=== PATIENT | female | born 1970 | race African-American/Black ===

== ENCOUNTER 2016-11-02 12:33 | Emergency (ER) | payer SELFPAY ==
[~2016-11-02] VITALS: Ht 165.1 cm; Wt 76.4 kg
[~2016-11-02 12:33] MED LIST: DEPOP150I IM; DILT120C3 PO
[2016-11-02 13:53] LABS: BASOPHILS # (AUTO) 0.05 K/uL (0.00-0.20); BASOPHILS % (AUTO) 0.6 % (0.0-2.0); EOSINOPHILS # (AUTO) 0.18 K/uL (0.00-0.70); EOSINOPHILS % (AUTO) 2.16 % (1.0-6.0); HEMOGLOBIN 12.6 g/dL (12.0-16.0); LYMPHOCYTES # (AUTO) 3.1 K/uL (1.0-4.8); LYMPHOCYTES % (AUTO) 37.9 % (22.0-44.0); MEAN CORPUSCULAR VOLUME 91 fL (80-100); MONOCYTES # (AUTO) 0.6 K/uL (0.1-1.0); MONOCYTES % (AUTO) 6.9 % (2.0-9.0); NEUTROPHILS # (AUTO) 4.3 K/uL (1.8-7.7); NEUTROPHILS % (AUTO) 52.4 % (40.0-70.0); PLATELET COUNT (AUTO) 269 K/uL (150-450); RED BLOOD CELL COUNT(AUTO) 4.19 MIL/uL (4.00-5.20); RED CELL DISTRIBUTION WIDTH 14.1 % (11.5-14.5); WHITE BLOOD COUNT (AUTO) 8.1 K/uL (4.5-11.0)
[2016-11-02 13:56] LABS: ANION GAP 6 mmol/L (8-16); CALCIUM, TOTAL 8.7 mg/dL (8.8-10.5); CARBON DIOXIDE 29 mmol/L (22-29); CHLORIDE 105 mmol/L (98-107); CREATININE 0.86 mg/dL (0.60-1.30); GLOMERULAR FILTR. RATE CALC > 60 mL/min (>60); SODIUM SERUM 140 mmol/L (136-145); UREA NITROGEN, BLOOD 17 mg/dL (7-18)
[2016-11-02 14:01] LABS: ALANINE AMINOTRANSFERASE 32 U/L (12-78); ALBUMIN 3.2 g/dL (3.4-5.0); ASPARTATE AMINOTRANSFERASE 20 U/L (15-37); BILIRUBIN,TOTAL 0.1 mg/dL (0.1-1.0); TOTAL PROTEIN, SERUM 7.3 g/dL (6.4-8.2)
[2016-11-02 14:08] VITALS: BP 144/87
== END 2016-11-02 14:35 | disposition home or self-care (01) ==
LOC: EMS 12:34
DX: R07.9 Chest pain, unspecified (principal); I10 Essential (primary) hypertension; F17.210 Nicotine dependence, cigarettes, uncomplicated
CPT/HCPCS: 93005; 99285

== ENCOUNTER 2017-03-30 18:35 | Emergency (ER) | payer OTHER ==
[~2017-03-30] VITALS: Ht 165.1 cm; Wt 71.0 kg
[2017-03-30] MEDS ORDERED: METF500T4 PO (18:48)
[2017-03-30 20:16] LABS: BASOPHILS % (AUTO) 0.5 % (0.0-2.0); EOSINOPHILS % (AUTO) 1.7 % (1.0-6.0); HEMATOCRIT 35.9 % (36-46); HEMOGLOBIN 12.2 g/dL (12.0-16.0); LYMPHOCYTES # (AUTO) 3.2 K/uL (1.0-4.8); LYMPHOCYTES % (AUTO) 35.5 % (22.0-44.0); MEAN CORPUSCULAR HGB CONC 33.9 G/dL (31.0-37.0); MEAN CORPUSCULAR VOLUME 89 fL (80-100); MONOCYTES # (AUTO) 0.6 K/uL (0.1-1.0); MONOCYTES % (AUTO) 6.9 % (2.0-9.0); NEUTROPHILS # (AUTO) 5.1 K/uL (1.8-7.7); NEUTROPHILS % (AUTO) 55.4 % (40.0-70.0); PLATELET COUNT (AUTO) 285 K/uL (150-450); RED BLOOD CELL COUNT(AUTO) 4.05 MIL/uL (4.00-5.20); RED CELL DISTRIBUTION WIDTH 15.9 % (11.5-14.5); WHITE BLOOD COUNT (AUTO) 9.2 K/uL (4.5-11.0)
[2017-03-30 20:25] LABS: ANION GAP 8 mmol/L (8-16); CALCIUM, TOTAL 8.6 mg/dL (8.8-10.5); CARBON DIOXIDE 27 mmol/L (22-29); CHLORIDE 106 mmol/L (98-107); CREATININE 0.91 mg/dL (0.60-1.30); GLOMERULAR FILTR. RATE CALC > 60 mL/min (>60); POTASSIUM 3.7 mmol/L (3.5-5.1); SODIUM SERUM 141 mmol/L (136-145); UREA NITROGEN, BLOOD 9 mg/dL (7-18)
[2017-03-30] MEDS ORDERED: SODIUM CHLORIDE 0.9% 1,000 ML IV ONE (20:30)
[2017-03-30 20:34] LABS: ALANINE AMINOTRANSFERASE 22 U/L (12-78); ALBUMIN 3.3 g/dL (3.4-5.0); ASPARTATE AMINOTRANSFERASE 18 U/L (15-37); BILIRUBIN,TOTAL 0.2 mg/dL (0.1-1.0); TOTAL PROTEIN, SERUM 7.1 g/dL (6.4-8.2)
[2017-03-30] MEDS ORDERED: ACETAMINOPHEN 500 MG TABLET PO ONE (21:00)
[2017-03-30 21:37] VITALS: BP 142/89
== END 2017-03-30 21:38 | disposition home or self-care (01) ==
LOC: EMS 20:26
DX: R42 Dizziness and giddiness (principal); E11.9 Type 2 diabetes mellitus without complications; I10 Essential (primary) hypertension; F17.210 Nicotine dependence, cigarettes, uncomplicated
CPT/HCPCS: 36415; 80053; 82962; 85025; 93005; 96360; 99285; 99406; J7030

== ENCOUNTER 2018-02-16 05:36 | Emergency (ER) | payer OTHER ==
[~2018-02-16] VITALS: Ht 165.1 cm; Wt 68.2 kg
[~2018-02-16 05:36] MED LIST changes: -DEPOP150I IM; -DILT120C3 PO; +METF500T6 PO
[2018-02-16] MEDS ORDERED: HYDROCODONE/ACETAMINOPHEN 5-325 MG TABLET PO ONE (07:00)
[2018-02-16] MEDS ORDERED: KETOROLAC TROMETHAMINE 30 MG/ML VIAL IVP ONE (09:15)
[2018-02-16 09:21] VITALS: BP 142/98
[2018-02-16] MEDS ORDERED: KETOROLAC TROMETHAMINE 30 MG/ML VIAL IM ONE (09:30)
[2018-02-16 09:37] LABS: GLUCOSE,POINT OF CARE 91 MG/DL (70-110)
== END 2018-02-16 09:32 | disposition home or self-care (01) ==
LOC: EMS 05:36
DX: S46.912A Strain of unspecified muscle, fascia and tendon at shoulder and upper arm level, left arm, initial encounter (principal); S16.1XXA Strain of muscle, fascia and tendon at neck level, initial encounter; E11.9 Type 2 diabetes mellitus without complications; I10 Essential (primary) hypertension; F17.210 Nicotine dependence, cigarettes, uncomplicated; X58.XXXA Exposure to other specified factors, initial encounter; Y93.89 Activity, other specified; Y92.89 Other specified places as the place of occurrence of the external cause; Y99.8 Other external cause status
CPT/HCPCS: 72040; 73030; 82962; 96372; 99284; J1885

== ENCOUNTER 2018-06-28 09:02 | Emergency (ER) | payer OTHER ==
[~2018-06-28] VITALS: Ht 165.1 cm; Wt 63.6 kg
[~2018-06-28 09:02] MED LIST changes: +METF-960 PO; -METF500T6 PO
[2018-06-28 09:09] VITALS: BP 141/88
[2018-06-28 09:44] LABS: GLUCOSE,POINT OF CARE 100 MG/DL (70-110)
[2018-06-28] MEDS ORDERED: ACETAMINOPHEN 325 MG TABLET PO ONE (10:15)
[2018-06-28] MEDS ORDERED: KETOROLAC TROMETHAMINE 60 MG/2 ML VIAL IM ONE (10:15)
== END 2018-06-28 12:21 | disposition home or self-care (01) ==
LOC: EMS 09:03
DX: M19.042 Primary osteoarthritis, left hand (principal); M19.041 Primary osteoarthritis, right hand; I10 Essential (primary) hypertension; E11.9 Type 2 diabetes mellitus without complications; F17.210 Nicotine dependence, cigarettes, uncomplicated; Z79.84 Long term (current) use of oral hypoglycemic drugs
CPT/HCPCS: 82962; 96372; 99283; J1885

== ENCOUNTER 2021-07-09 19:46 | Emergency (ER) | payer MEDICAID, OTHER ==
[~2021-07-09] VITALS: Ht 165.1 cm; Wt 76.8 kg
[~2021-07-09 19:46] MED LIST changes: +METF-1211 PO; -METF-960 PO
[2021-07-09 19:51] VITALS: BP 139/92
[2021-07-09] MEDS ORDERED: AMOX TR/POT CLAV 875 MG/125 MG TABLET PO ONE (21:00)
[2021-07-09 21:26] LABS: COVID AG,FIA SOURCE NASOPHARYNGEAL
[2021-07-09] MEDS: ACETAMINOPHEN 500 MG TABLET PO ONE ×2 (21:26→21:28)
[2021-07-09 21:52] LABS: GLUCOMETER DEV NAME(LOC) ERT.5; GLUCOSE,POINT OF CARE 133 MG/DL (70-110)
== END 2021-07-09 22:15 | disposition home or self-care (01) ==
LOC: EMS 19:50
DX: J32.9 Chronic sinusitis, unspecified (principal); E11.9 Type 2 diabetes mellitus without complications; I10 Essential (primary) hypertension; Z20.822 Contact with and (suspected) exposure to COVID-19
CPT/HCPCS: 82962; 99283

== ENCOUNTER 2021-09-21 19:17 | Emergency (ER) | payer MEDICAID ==
[~2021-09-21] VITALS: Ht 165.1 cm; Wt 69.1 kg
[2021-09-21 19:26] VITALS: BP 152/90
[2021-09-21] MEDS ORDERED: IBUP-2070 PO (20:46)
[2021-09-21] MEDS ORDERED: AMOX1TAB16 PO (20:46)
== END 2021-09-21 21:15 | disposition home or self-care (01) ==
LOC: EMS 19:18
DX: H66.91 Otitis media, unspecified, right ear (principal); I10 Essential (primary) hypertension; E11.9 Type 2 diabetes mellitus without complications; Z79.84 Long term (current) use of oral hypoglycemic drugs; F17.210 Nicotine dependence, cigarettes, uncomplicated
CPT/HCPCS: 82962; 99283

== ENCOUNTER 2023-12-24 06:58 | Emergency (ER) | payer MEDICAID, OTHER ==
[~2023-12-24] VITALS: Ht 165.1 cm; Wt 70.5 kg
[~2023-12-24 06:58] MED LIST changes: +AMOX1TAB16 PO; +IBUP-1492 PO
[2023-12-24 07:14] VITALS: BP 156/110; PULSE 93; RESP 15; TEMP 98
== END 2023-12-24 08:50 | disposition left against medical advice (07) ==
LOC: EMS 06:59
DX: R51.9 Headache, unspecified (principal); Z53.21 Procedure and treatment not carried out due to patient leaving prior to being seen by health care provider
CPT/HCPCS: 99281; Z7502

== ENCOUNTER 2024-06-28 | Emergency (ER) | payer OTHER ==
[~2024-06-28] VITALS: Ht 165.1 cm; Wt 69.1 kg
[~2024-06-28] MED LIST changes: +AMOX-457 PO; -AMOX1TAB16 PO
[2024-06-28 00:15] VITALS: BP 130/81; PULSE 84; RESP 16; TEMP 98.7; O2SAT 99
[2024-06-28] MEDS: KETOROLAC TROMETHAMINE 30 MG/ML VIAL IM ONE (02:32)
[2024-06-28] MEDS: METHOCARBAMOL 500 MG TABLET PO ONE (02:32)
[2024-06-28] MEDS: ACETAMINOPHEN 325 MG TABLET PO ONE (02:32)
[2024-06-28] MEDS ORDERED: METH-812 PO (04:14)
== END 2024-06-28 04:21 | disposition home or self-care (01) ==
LOC: EMS
DX: M54.50 Low back pain, unspecified (principal); M54.2 Cervicalgia; M25.551 Pain in right hip; M25.552 Pain in left hip; E11.9 Type 2 diabetes mellitus without complications; I10 Essential (primary) hypertension; F17.210 Nicotine dependence, cigarettes, uncomplicated; Z98.890 Other specified postprocedural states; V49.88XA Car occupant (driver) (passenger) injured in other specified transport accidents, initial encounter; Y93.89 Activity, other specified; Y92.89 Other specified places as the place of occurrence of the external cause; Y99.8 Other external cause status
CPT/HCPCS: 99283; 96372; J1885

== ENCOUNTER 2025-03-08 06:46 | Emergency (ER) | payer OTHER ==
[~2025-03-08] VITALS: Ht 162.6 cm; Wt 68.2 kg
[~2025-03-08 06:46] MED LIST changes: +METH-812 PO
[2025-03-08 08:04] VITALS: BP 167/102; PULSE 84; RESP 18; TEMP 97.805264; O2SAT 100
[2025-03-08 08:29] LABS: BASOPHILS % (AUTO) 0.5 % (0.0-2.0); EOSINOPHILS % (AUTO) 2.3 % (1.0-6.0); HEMOGLOBIN 15.1 g/dL (12.0-16.0); LYMPHOCYTES # (AUTO) 2.7 K/uL (1.0-4.8); LYMPHOCYTES % (AUTO) 29.4 % (22.0-44.0); MEAN CORPUSCULAR HEMOGLOBIN 29.8 pg (26.0-34.0); MEAN CORPUSCULAR HGB CONC 33.6 G/dL (31.0-37.0); MEAN CORPUSCULAR VOLUME 89 fL (80-100); MONOCYTES # (AUTO) 0.5 K/uL (0.1-1.0); MONOCYTES % (AUTO) 5.2 % (2.0-9.0); NEUTROPHILS # (AUTO) 5.7 K/uL (1.8-7.7); NEUTROPHILS % (AUTO) 62.6 % (40.0-70.0); PLATELET COUNT (AUTO) 289 K/uL (150-450); RED BLOOD CELL COUNT(AUTO) 5.07 MIL/uL (4.00-5.20); RED CELL DISTRIBUTION WIDTH 14.9 % (11.5-14.5); WHITE BLOOD COUNT (AUTO) 9.1 K/uL (4.5-11.0)
[2025-03-08 08:37] LABS: ANION GAP 3 mmol/L (8-16); CALCIUM, TOTAL 9.3 mg/dL (8.8-10.5); CARBON DIOXIDE 32 mmol/L (22-29); CHLORIDE 108 mmol/L (98-107); CREATININE 0.93 mg/dL (0.60-1.30); GLOMERULAR FILTR. RATE CALC > 60 mL/min (>60); GLUCOSE,RANDOM 100 mg/dL (70-110); SODIUM SERUM 143 mmol/L (136-145); UREA NITROGEN, BLOOD 18 mg/dL (7-18)
[2025-03-08] MEDS: TraMADol HCL 50 MG TABLET PO ONE (08:49)
[2025-03-08] MEDS: LIDOCAINE 5% TRANSDERMAL PATCH TD ONE (09:40)
[2025-03-08 10:23] LABS: APPEARANCE,URINE HAZY (CLEAR); BILIRUBIN,URINE NEGATIVE (NEGATIVE); COLOR,URINE LIGHT YELLOW (YELLOW); GLUCOSE, URINE (UA) TRACE mg/dL (NEGATIVE); KETONES,URINE NEGATIVE (NEGATIVE); LEUKOCYTE ESTERASE ,URINE LARGE (NEGATIVE); NITRATE,URINE NEGATIVE (NEGATIVE); OCCULT BLOOD,URINE SMALL (NEGATIVE); PH,URINE 5.5 (5.0-8.0); PROTEIN,URINE TRACE mg/dL (NEGATIVE); SPECIFIC GRAVITIY, URINE 1.024 (1.003-1.030); UROBILINOGEN,URINE <=1.0 mg/dL (<=1.0)
[2025-03-08] MEDS ORDERED: POLY119P3 PO (10:32)
[2025-03-08] MEDS ORDERED: LIDO-57 TP (10:32)
[2025-03-08] MEDS ORDERED: CEPH-558 PO (10:32)
[2025-03-08] MEDS: CEPHALEXIN MONOHYDRATE 500 MG CAPSULE PO ONE (10:33)
[2025-03-08 10:34] LABS: BACTERIA,URINE Moderate /HPF (None Seen); SQUAMOUS EPITHELIAL CELL,UR Moderate /LPF (None Seen)
[2025-03-08 10:35] LABS: URINALYSIS COMMENT Rare Trich. seen.
== END 2025-03-08 10:44 | disposition home or self-care (01) ==
LOC: EMS 06:46
DX: N39.0 Urinary tract infection, site not specified (principal); M54.50 Low back pain, unspecified; E11.9 Type 2 diabetes mellitus without complications; I10 Essential (primary) hypertension; F17.210 Nicotine dependence, cigarettes, uncomplicated; Z98.890 Other specified postprocedural states; Z79.899 Other long term (current) drug therapy
CPT/HCPCS: 74018; 80048; 81001; 82962; 84702; 85025; 87086; 99284; 36415-L1; 36415-TC